=== PATIENT | female | born 1995 | race Caucasian/White ===

== ENCOUNTER 2021-07-28 03:50 | Emergency (ER) | payer SELFPAY ==
[~2021-07-28] VITALS: Ht 157.5 cm; Wt 89.0 kg
[2021-07-28 07:51] VITALS: BP 117/75
== END 2021-07-28 09:13 | disposition home or self-care (01) ==
LOC: ED 08:20
DX: R10.12 Left upper quadrant pain (principal); R19.7 Diarrhea, unspecified
CPT/HCPCS: 36415; 74176; 80048; 81003; 82040; 84702; 85025; 96361; 96374; 96375; 96376; 99284; J1885; J2270; J2405; J7030